=== PATIENT | female | born 1950 | race African-American/Black ===

== ENCOUNTER 2018-10-26 10:11 | Inpatient (IN) | payer OTHER ==
[~2018-10-26] VITALS: Ht 175.3 cm; Wt 92.5 kg
[2018-10-26] VITALS (7 sets, daily range): BP systolic 139–173; BP diastolic 81–87
[~2018-10-26 10:11] MED LIST: ACETAMINOPHEN-1 EAC1 PO; ERYTHROMYCIN E3.5 G1 OPHTHALMIC
[2018-10-26 10:33] LABS: HEMATOCRIT 38.7 % (37.0-47.0); MCH 28.6 pg (26.0-34.0); MCHC 33.6 g/dL (28.0-37.0); MCV 85.1 fL (80.0-100.0); PLATELET COUNT 211 thou/uL (150-400); RBC 4.54 mil/uL (4.20-5.00); RDW 14.7 % (10.5-14.5); WBC 7.6 thou/uL (4.0-11.0)
[2018-10-26] MEDS ORDERED: EPITOL200 MG PO (10:33)
[2018-10-26] MEDS ORDERED: COZAAR 25 MG TA25 M1 PO (10:34)
[2018-10-26] MEDS ORDERED: METFORMIN HCL500 MG PO (10:34)
[2018-10-26 10:41] LABS: ANION GAP 12 mmol/L (7-16); BUN 14 mg/dL (7-18); CALCIUM 11.3 mg/dL (8.5-10.1); CHLORIDE 99 mmol/L (98-107); CO2 23 mmol/L (21-32); CREATININE 1.5 mg/dL (0.6-1.0); GLUCOSE 168 mg/dL (74-106); POTASSIUM 4.4 mmol/L (3.5-5.1); SODIUM 134 mmol/L (136-145)
[2018-10-26 10:46] LABS: ALBUMIN 4.1 g/dL (3.4-5.0); DIRECT BILIRUBIN < 0.1 mg/dL (<0.1-0.3); SGOT 33 U/L (15-37); SGPT 32 U/L (30-65); TOTAL BILIRUBIN 0.3 mg/dL (<0.1-1.0); TOTAL PROTEIN 8.6 g/dL (6.4-8.2)
[2018-10-26 10:48] LABS: URINE BILIRUBIN NEGATIVE (Negative); URINE BLOOD TRACE (Negative); URINE CLARITY CLEAR; URINE COLOR YELLOW; URINE GLUCOSE-RANDOM* NEGATIVE (Negative); URINE KETONES NEGATIVE (Negative); URINE LEUKOCYTES NEGATIVE (Negative); URINE NITRITE NEGATIVE (Negative); URINE PROTEIN (DIPSTICK) 1+ (Negative); URINE UROBILINOGEN 0.2 E.U./dl (0.2-1.0)
[2018-10-26 11:01] LABS: CASTS None Seen /LPF (None Seen); MUCUS 0-3 Light strn/LPF (None Seen); SQUAMOUS 0-3 Few /LPF (0-3); URINE RBC None Seen /HPF (0-2); URINE WBC 0-5 Rare /HPF (0-5)
[2018-10-26 11:02] LABS: BACTERIA 1-9 Few /HPF (None Seen); CRYSTALS None Seen /LPF (None Seen)
[2018-10-26 11:29] LABS: PROTIME 10.8 Seconds (9.3-11.4)
[2018-10-26 11:31] LABS: ABSOLUTE NEUTROPHILS 5.9 thou/uL (1.4-8.2); PLATELET ESTIMATE NORMAL
--- NOTE | 2018-10-26 12:47 | NUR ---
PT ADMITTED TO ROOM 352, PT ABLE TO SCOOT OVER TO BED FROM [facility] BUT IT TOOK A LONG TIME AND REQUIRED A LOT OF COACHING. PT NOT ABLE TO FOCUS AND KEEP ATTENTION. PT CAN TELL YOU HER NAME AND DATE OF AFTER ASKING MULTIPLE TIMES BUT DOES NOT KNOW THE YEAR, PT SAYS YES SHE KNOWS WHERE SHE IS BUT WILL NOT TELL RN. PT IS FLU POSITIVE AND PLACED IN DROPLET PRECAUTIONS. WILL ATTEMPT TO DO ADMISSION QUESTIONS.
--- NOTE | 2018-10-26 13:42 | EKG ---
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1950 Requested By: Enedelia Mahan Order Number: [id number] MD: Melvin Correia Measurements Intervals [place] Rate: 111 P: 22 MT: 168 QRS: -2 QRSD: 88 T: 148 QT: 345 QTc: 469 Interpretive Statements Sinus tachycardia Probable left atrial enlargement Baseline wander in lead(s) V2 No previous ECG available for comparison Electronically Signed On 10-26-2018 13:42:45 TRAIN CONTROL ELECTRONIC TECHNICIAN by Melvin Correia [email or web address] <ELECTRONICALLY SIGNED> By: Melvin Correia MD 10/26/18 1342 26 102 Melvin Correia MD /GINA
--- NOTE | 2018-10-26 17:08 | NUR ---
PT FAMILY VERY AGGRESSIVE, WRITING DOWN EVERY TIME SOMEONE ENTERS ROOM, WHAT THEY SAY AND DO. FAMILY ASKING SAME QUESTION REPEATEDLY, ARGUING WITH RN WHEN ANSWER GIVEN, PAGED DR HEATH FOR TYLENOL ORDER FOR FEVER OF 103.1, FAMILY ALSO WANTED RN TO ASK PHYSICIAN TO COME BACK BY AND SEE PT, TOLD DR HEATH SHE STATES THAT SHE SPENT 45 MINUTES TALKING WITH THE FAMILY EARLIER TODAY, SHE STATES THAT WE HAVE SCANNED PT HEAD AND ALL LABS ARE NEGATIVE SO HER AMS IS FROM THE FLU AND THAT SHE TOLD THIS TO THE FAMILY MULTIPLE TIMES. RN HAS ALSO BEEN TELLING THEM THIS SINCE ADMISSION, THEY DO NOT WANT TO HEAR IT.
--- NOTE | 2018-10-27 03:18 | NUR ---
ASSUMED PT CARE AROUND 1900. PT HAS BEEN DROWSY BUT IS ARROUSABLE. ORIENTED X2-3 BUT STILL SLOW TO RESPOND AT TIMES. DENIES ANY PAIN. ABLE TO FOLLOW SIMPLE COMMANDS. IVF INFUSING ORDERED. IV ANTIBIOTICS ADMINISTERED PER ORDERS FROM DR BARROW. MIRLANDE TO DD WITH GOOD URINE OUTPUT. DTR AT BEDSIDE ALL NIGHT. NEURO CHECKS Q2H. PERRLA. TYLENOL GIVEN FOR FEVER. BP STABLE. FALL PRECAUTIONS IN PLACE. NOT PROGRESSING WELL TOWARD POC GOALS. WILL CONTINUE TO MONITOR FURTHER.
[2018-10-27 04:05] VITALS: BP 126/70
[2018-10-27 06:00] LABS: HEMATOCRIT 34.6 % (37.0-47.0); HEMOGLOBIN 11.6 gm/dL (12.0-15.0); MCH 28.3 pg (26.0-34.0); MCHC 33.4 g/dL (28.0-37.0); MCV 84.7 fL (80.0-100.0); RBC 4.08 mil/uL (4.20-5.00); RDW 14.4 % (10.5-14.5); WBC 3.3 thou/uL (4.0-11.0)
[2018-10-27 06:11] LABS: CALCIUM 9.7 mg/dL (8.5-10.1); CREATININE 1.4 mg/dL (0.6-1.0); POTASSIUM 3.8 mmol/L (3.5-5.1)
[2018-10-27 07:19] VITALS: BP 102/59
[2018-10-27 11:15] VITALS: BP 123/73
--- NOTE | 2018-10-27 12:10 | HC ---
[facility] [place] [place] [address] CONSULTATION Name: ANICETO STAFFORD Room #: 352-P ADM IN M.R.#: [id number] Admission: 10/26/18 Attend Phys: Divya Jules MD Discharge: Date of : 46 Report #: [id number] THIS REPORT FOR: //name// CC: Pasha Jules DATE OF SERVICE: 10/26/2018 REASON FOR CONSULTATION: Fever and encephalopathy. HISTORY OF PRESENT ILLNESS: The patient was a 68-year-old with underlying history of diabetes and hypertension. 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 Yesterday afternoon was complaining of myalgias, arthralgias and malaise. She went to bed in the early afternoon. By syrup maker cook around 3:00, she was found by her incontinent with loose bowels and incoherent. She had fever at that time. No documented chills or sweats. They brought her in the Emergency Room, where she was found to be encephalopathic. She was able to answer questions, but was confused. She had temperature up to 103 degrees. Hemodynamically, has been stable. She has had a nonproductive cough for over 3 weeks. This was initially diagnosed as pneumonia and treated with antibiotics and corticosteroids, having completed this over 10 days ago. Family states that the cough is about the same that it has been over the last several weeks. She has had no headaches or rhinorrhea. There have been no pharyngitis symptoms or rash. She has had no abdominal pain, nausea or vomiting. She has had several loose stools. No dysuria, frequency or hematuria. She does have underlying gout, but no flare of her arthritis symptoms. No history of other neurologic diseases other than left facial pain. I am suspecting trigeminal neuralgia that has been treated with carbamazepine longstanding. She has had no psychiatric illnesses. Reports no travel. Her exposures have included the children at her school. As far as I can tell, no one has been confirmed with influenza A. She has no HIV risk factors. No history of malignancy or other autoimmune diseases. REVIEW OF SYSTEMS: A 10-point review of systems is as noted above with no additions. ALLERGIES: None. MEDICATIONS: Carbamazepine, metformin, losartan, albuterol inhaler p.r.n. FAMILY HISTORY: Noncontributory. SOCIAL HISTORY: Nonsmoker, no significant alcohol intake. Lives with her and her daughter. PHYSICAL EXAMINATION: VITAL SIGNS: Temperature is 103 degrees just prior to my arrival. Heart rate [facility] [address] [place] [address] CONSULTATION Name: ANICETO STAFFORD Room #: 352-P [facility]#: [id number] Admission: 10/26/18 Attend Phys: Divya Jules MD Discharge: Date of : 46 Report #: [id number], respiratory rate 19, blood pressure 172/84. GENERAL: The patient was lethargic. She would arouse and converse, although did not stimulate conversation. She was mildly confused, unable to state day or the year initially. After further evaluation, she was later able to state these facts. Would not direct in conversation to her, she would drift off to sleep. She was moderately obese, but appeared her stated age. HEENT: Eyes: No conjunctivitis or scleral icterus. Pupils are equal, round and reactive to light. Extraocular movements were normal. Vision intact. Gross hearing normal. Mouth without mucositis or posterior oropharynx injection. Dentition in good repair. NECK: Supple. No thyromegaly or mass. No JVD. No palpable adenopathy. SKIN: Without rash. LUNGS: Clear. HEART: Regular, without murmur, gallop or rub. ABDOMEN: Soft, nontender, no hepatosplenomegaly or mass. GENITAL AND RECTAL: Not performed. EXTREMITIES: Without cyanosis, clubbing or edema. NEUROLOGIC: As noted above with normal cranial nerves. Strength in her upper and lower extremities was normal. Deep tendon reflexes in the upper and lower extremities including biceps knee jerk, ankle jerks were normal bilaterally. Sensation to touch normal upper and lower extremities. The patient was able to sit up on her own and was stable. There were no symptoms of vertigo. She had no nystagmus. I did not stand and walk the patient. Mood as noted. LABORATORY STUDIES: Lactate 5. INR 1. Hemoglobin 13; WBC 7.6 with 75% segs; 3% bands; 7% lymphs; 13% monocytes; platelet count was 211,000. Sodium 134, potassium 4.4, bicarbonate 23, creatinine 1.5, blood glucose 168. Liver function test normal. Noncontrast CT scan of the head was negative. Chest x-ray, cardiomegaly, no acute pulmonary infiltrates. Urinalysis negative. ECG, sinus tachycardia. Influenza antigen positive for influenza A. IMPRESSION: 1. A 68-year-old with underlying diabetes and a past history of sarcoidosis, presents with influenza A, associated encephalitis. I am suspecting influenza as the cause of her neurologic deficits. Cannot yet exclude secondary process at this point. So far, no focal neurologic deficits are evident. This will need further evaluation. 2. Hypertension. 3. History of gout. 4. Trigeminal neuralgia. RECOMMENDATIONS: Continue observation with neuro checks hourly and maintain on the monitor. Continue antiviral agents and antibiotic therapy pending further studies. Arrange MRI scan of the brain, lumbar puncture. With these tests, we will be able to prognosticate her recovery. Considering her mental status is [facility] [address] [place] [address] CONSULTATION Name: ANICETO STAFFORD [place] Room #: 352-P ADM IN M.R.#: [id number] Admission: 10/26/18 Attend Phys: Divya Jules MD Discharge: Date of : 46 Report #: [id number] fluctuating at this time, we will hold on corticosteroids. We will also screen HIV, quantitative immunoglobulin, serum protein electrophoresis. If any further neurologic decline, we will have Neurology evaluate as well. Evaluation and plan of care were discussed with the patient and her family at the bedside along with nursing staff. Time 60 minutes. <ELECTRONICALLY SIGNED> By: Nura Londono MD 10/27/18 1210 2054 [id number] Nura Londono MD /nt
[2018-10-27 16:36] VITALS: BP 117/66
--- NOTE | 2018-10-27 17:09 | NUR ---
care of pt this assumed this am @ 0700. pt noted to be sleeping this am w/ her daughter at (who slept there all night). pt awakened at ~ 1000 for an assessment. pt has progressively become more awake and alert as the day has progressed. pt has denied co pain, soa and no n/v today. pt noted to have a loose, diarrhea stool this am, she attributes it to the iv antibx she is receiving. morrison functional and w/o issues today. pt noted to have an absent appetite for breakfast, very poor appetite for lunch and a poor appetite for dinner, she has received much encouragement to eat from her family members. pt has been given a menue so that she can choose items that appeal to her. pt receiving ivf's today, w/ an infiltrated iv access to her lt ac, new iv access to rt hand placed this afternoon. MRI ordered, tech called this am stating she would not be in today unless it was ordered STAT, but she will be in tomorrow to complete the MRI, she call dr. costello to inform. dr. csotello stated he ordered a spinal tap yesterday, no order found (other than lab work on the spinal tap fluid), he placed the order today and was informed of no doctor to preform until Monday if not stat. family made aware of these changes to the MRI and Spinal Tap. metformin on hold although ct was done w/o contrast. pt visited by numerous family members today. he was informed of this
[2018-10-27 19:10] VITALS: BP 138/77
[2018-10-27 23:30] VITALS: BP 136/83
[2018-10-28 04:17] VITALS: BP 134/84
--- NOTE | 2018-10-28 04:46 | NUR ---
ASSUMED PT CARE AROUND 1900. A&OX4, FORGETFUL AT TIMES. DENIES ANY PAIN OR SOA. VSS. LOW GRADE FEVER EARLIER IN THE SHIFT. AFEBRILE THIS MORNING. PT HAD LOTS OF FAMILY MEMBERS AT BEDSIDE EARLIER IN THE SHIFT. 2 DTRS STAYED DURING THE NIGHT. NUERO CHECKS Q2H. IVF AND ABX ADMINISTERED ORDERED. PT SLEPT OFF AND ON DURING THE NIGHT. OVERALL, SHE WAS MORE ALERT AND AWAKE THAN PREVIOUS NIGHT. FALL PRECAUTIONS IN PLACE. PROGRESSING SLOWLY TOWARD POC GOALS. WILL CONTINUE TO MONITOR FURTHER.
[2018-10-28 05:58] LABS: HEMATOCRIT 32.6 % (37.0-47.0); MCH 28.6 pg (26.0-34.0); MCHC 33.7 g/dL (28.0-37.0); RBC 3.83 mil/uL (4.20-5.00); RDW 14.3 % (10.5-14.5); WBC 2.6 thou/uL (4.0-11.0)
[2018-10-28 06:13] LABS: ALBUMIN 2.8 g/dL (3.4-5.0); CALCIUM 9.4 mg/dL (8.5-10.1); CREATININE 1.2 mg/dL (0.6-1.0); POTASSIUM 3.7 mmol/L (3.5-5.1); TOTAL BILIRUBIN 0.2 mg/dL (<0.1-1.0); TOTAL PROTEIN 6.7 g/dL (6.4-8.2)
[2018-10-28 07:30] VITALS: BP 128/76
[2018-10-28 11:31] VITALS: BP 123/74
[2018-10-28 12:08] LABS: IgA 390 mg/dL (87-352); IgG 1258 mg/dL (700-1600); IgM 31 mg/dL (26-217)
[2018-10-28 16:22] VITALS: BP 131/83
--- NOTE | 2018-10-28 18:00 | NUR ---
PT REPORTS FEELING WHEEZY X 2 TODAY..RT TX GIVEN PRN...LUNGS SOUND CLEAR..WILL MONITOR...
[2018-10-28 20:05] VITALS: BP 140/79
[2018-10-28 23:51] VITALS: BP 147/83
[2018-10-29] VITALS (7 sets, daily range): BP systolic 134–145; BP diastolic 77–87
[2018-10-29 04:19] LABS: HEMATOCRIT 35.5 % (37.0-47.0); HEMOGLOBIN 11.7 gm/dL (12.0-15.0); MCH 28.3 pg (26.0-34.0); MCV 85.7 fL (80.0-100.0); RBC 4.14 mil/uL (4.20-5.00); RDW 14.2 % (10.5-14.5); WBC 3.7 thou/uL (4.0-11.0)
--- NOTE | 2018-10-29 04:31 | NUR ---
ASSUMED PT CARE AROUND 1900. A&OX4. NO NEURO DEFICITS NOTED. FAMILY AT BEDSIDE EARLIER IN THE SHIFT. STAYED AT BEDSIDE ALL NIGHT. SOME FAMILY MEMBERS WERE NOT WEARING MASKS FOR DROPLET PRECAUTIONS. FAMILY WAS EDUCATED ON NEED TO WEAR MASKS WHEN AROUND THE PATIENT TO PROTECT THEMSELVES AND NOT SPREAD GERMS OUTSIDE THE ROOM. PT SLEPT OFF AND ON DURING THE NIGHT. CALLS OUT APPROPRIATELY. FALL PRECAUTIONS IN PLACE. VSS. AFEBRILE. NO S/S RESP DISTRESS. PROGRESSING TOWARD POC GOALS. WILL CONTINUE TO MONITOR FURTHER.
[2018-10-29 05:03] LABS: ALBUMIN 3.2 g/dL (3.4-5.0); CALCIUM 9.9 mg/dL (8.5-10.1); CREATININE 1.2 mg/dL (0.6-1.0); POTASSIUM 3.9 mmol/L (3.5-5.1); TOTAL BILIRUBIN 0.2 mg/dL (<0.1-1.0); TOTAL PROTEIN 7.4 g/dL (6.4-8.2)
--- NOTE | 2018-10-29 10:31 | NUR ---
Nutrition: pt admitted with sepsis, AMS, influenza B. Pt is now AO x 4 and MS significantly improved from initial admit. NPO for possible spinal tap. Prior intake reportedly fair but usual appetite is reportedly good. Some gradual weight loss due to improved eating habits over the past 2 years per pt. Hx DM, BG 118-167, on metformin. Consider low nutrition risk at this time.
--- NOTE | 2018-10-29 11:00 | NUR ---
care of pt assumed this am, noted pt's at bs in cot asleep. pt aox4 this am w/ hernandez x4, ambulates to the bthrm w/ a steady, balanced and coordinated gait, no use of walker today. pt denies co pain, no soa and no n/v, pt does state she is still having a bit of diarrhea (she thinks rt to iv antibiotics she was receiving) but that the stool is starting to firm up. pt npo this am due to impending spinal tap so, no breakfast. dr. iraheta by @ 1100 and requested spinal tap be dc'd due to request by dr. costello to her, done. pt restarted her diet for lunch. no family at bs late am. call placed to Kellie Blank rt family's consistant non-compliance w/ isolation protocol as staff has educated them and asked for their compliance previous days w/ minimal compliance. dr. iraheta request rn call her after id has seen for a potential dc today.
[2018-10-29 12:10] LABS: HIV ANTIBODY Non Reactive (Non Reactive)
[2018-10-29] MEDS ORDERED: TAMIFLU30 MG PO (12:22)
--- NOTE | 2018-10-29 12:53 | NUR ---
ASSESSMENT: CM REVIEWED CHART AND MET WITH PATIENT AT THE BEDSIDE. PT WAS ADMITTED WITH INFLUENZA/AMS. PT REPORTS SHE LIVES WITH HER . PTS IS PRESENT WELL HER DAUGHTER WHO IS SUPPORTIVE. PT REPORTS THERE ARE ABOUT 5 STEPS TO ENTER HER HOME. PT REPORTS SHE AMBULATES INDEPENDENTLY AND IS INDEPENDENT WITH ADLS. CM DISCUSSED ROLE. PT STATING SHE DOES NOT FEEL SHE NEEDS HH IF ANYTHING SHE WOULD DO OUTPATIENT PT/OT. CM NOTIFIED ATTENDING. PT DENIES ANY NEEDS FROM CM PRIOR TO DISCHARGE. CM WILL CONTINUE TO FOLLOW TO ASSIST NEEDED.
[2018-10-29 17:09] LABS: GLOBULIN TOTAL 3.2 g/dL (2.2-3.9); M-SPIKE Not Observed g/dL (Not Observed)
[2018-10-31 01:06] LABS: ADENOVIRUS Negative (Negative); INFLUENZA A Positive (Negative); INFLUENZA B Negative (Negative); METAPNEUMOVIRUS Negative (Negative); PARAINFLUENZA 1 Negative (Negative); PARAINFLUENZA 2 Negative (Negative); PARAINFLUENZA 3 Negative (Negative); RHINOVIRUS Negative (Negative); RSV A Negative (Negative); RSV B Negative (Negative)
== END 2018-10-29 19:07 | disposition home or self-care (01) | DRG 871 ==
LOC: ER 10:11 → 3W 11:34 → EROBS 11:34 → 3W 12:40
PROVIDERS: Hospitalist; Nurse Practitioner Family; Specialist; ADMIT Internal Medicine
DX: A41.9 Sepsis, unspecified organism (principal); G93.41 Metabolic encephalopathy; N17.9 Acute kidney failure, unspecified; E87.2 Acidosis; J10.81 Influenza due to other identified influenza virus with encephalopathy; M10.9 Gout, unspecified; I12.9 Hypertensive chronic kidney disease with stage 1 through stage 4 chronic kidney disease, or unspecified chronic kidney disease; E11.22 Type 2 diabetes mellitus with diabetic chronic kidney disease; G50.0 Trigeminal neuralgia; D86.9 Sarcoidosis, unspecified; N18.9 Chronic kidney disease, unspecified; B34.9 Viral infection, unspecified; Z79.899 Other long term (current) drug therapy; Z87.01 Personal history of pneumonia (recurrent)
CPT/HCPCS: 10779; 10879

== ENCOUNTER 2019-08-19 11:22 | Emergency (ER) | payer OTHER ==
[~2019-08-19] VITALS: Ht 170.2 cm; Wt 90.7 kg
[~2019-08-19 11:22] MED LIST changes: +COZAAR 25 MG TA25 M1 PO; +EPITOL200 MG PO; +METFORMIN HCL500 MG PO; +TAMIFLU30 MG PO
[2019-08-19] MEDS ORDERED: CARBAMAZEPINE200 M2 PO (11:35)
[2019-08-19 11:45] LABS: ABSOLUTE NEUTROPHILS 3.1 thou/uL (1.4-8.2); HEMOGLOBIN 13.6 gm/dL (12.0-15.0); LYMPHOCYTES 21.8 % (24.0-44.0); MCH 29.1 pg (26.0-34.0); MCHC 33.1 g/dL (28.0-37.0); MONOCYTES 8.2 % (1.0-8.0); PLATELET COUNT 273 thou/uL (150-400); RBC 4.66 mil/uL (4.20-5.00); RDW 13.7 % (10.5-14.5); WBC 4.6 thou/uL (4.0-11.0)
[2019-08-19 11:53] LABS: ANION GAP 10 mmol/L (7-16); BUN 18 mg/dL (7-18); CALCIUM 11.4 mg/dL (8.5-10.1); CHLORIDE 100 mmol/L (98-107); CO2 25 mmol/L (21-32); CREATININE 1.5 mg/dL (0.6-1.0); GLUCOSE 165 mg/dL (74-106); POTASSIUM 4.3 mmol/L (3.5-5.1); SODIUM 135 mmol/L (136-145)
[2019-08-19 12:03] LABS: ALBUMIN 4.3 g/dL (3.4-5.0); SGOT 15 U/L (15-37); SGPT 13 U/L (30-65); TOTAL BILIRUBIN 0.3 mg/dL (<0.1-1.0); TOTAL PROTEIN 8.9 g/dL (6.4-8.2); TROPONIN-I <0.06 ng/mL (<0.06)
[2019-08-19 12:17] LABS: URINE BILIRUBIN NEGATIVE (Negative); URINE BLOOD NEGATIVE (Negative); URINE CLARITY CLEAR; URINE COLOR YELLOW; URINE GLUCOSE-RANDOM* NEGATIVE (Negative); URINE KETONES NEGATIVE (Negative); URINE LEUKOCYTES-REFLEX NEGATIVE (Negative); URINE NITRITE-REFLEX NEGATIVE (Negative); URINE PROTEIN (DIPSTICK) 2+ (Negative); URINE SPECIFIC GRAVITY 1.025 (1.005-1.035); URINE UROBILINOGEN 0.2 E.U./dl (0.2-1.0)
[2019-08-19 12:32] LABS: BACTERIA-REFLEX None Seen /HPF (None Seen); CASTS None Seen /LPF (None Seen); CRYSTALS None Seen /LPF (None Seen); SQUAMOUS 4-10 Moderate /LPF (0-3); URINE RBC None Seen /HPF (0-2); URINE WBC-REFLEX None Seen /HPF (0-5)
[2019-08-19] MEDS ORDERED: MOBIC15 MG PO (16:28)
[2019-08-19 18:15] VITALS: BP 170/100
--- NOTE | 2019-08-20 16:55 | EKG ---
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1950 Requested By: Jeni Tam Order Number: [id number] MD: Maycol Fraire Measurements Intervals [place] Rate: 78 P: 12 MI: 169 QRS: -13 QRSD: 88 T: 70 QT: 395 QTc: 450 Interpretive Statements Sinus rhythm Left ventricular hypertrophy Inferior infarct, old Compared to ECG 10/26/2018 10:27:02 ST and T wave abnormality is less pronounced Electronically Signed On 08-20-2019 16:55:45 MACHINIST OUTSIDE by Maycol Fraire [email or web address] <ELECTRONICALLY SIGNED> By: Maycol Fraire MD, [facility] 08/20/19 1655 1140 1140 Maycol Fraire MD, FACC /EPI
== END 2019-08-19 18:15 | disposition home or self-care (01) ==
LOC: ER 11:22
PROVIDERS: Physician Assistant
DX: R42 Dizziness and giddiness (principal); R41.0 Disorientation, unspecified; R53.1 Weakness; I10 Essential (primary) hypertension; E11.9 Type 2 diabetes mellitus without complications; M10.9 Gout, unspecified